=== PATIENT | male | born 1975 | race African-American/Black ===

== ENCOUNTER 2018-01-14 18:13 | Inpatient (IN) | payer OTHER ==
[~2018-01-14] VITALS: Ht 175.3 cm; Wt 77.1 kg
[2018-01-14] MEDS ORDERED: Aspirin Baby 81mg ORAL ONE (18:15)
[2018-01-14 18:17] VITALS: BP 141/93
[2018-01-14] MEDS ORDERED: ASPIRIN81 MG ORAL (18:18)
[2018-01-14] MEDS ORDERED: ATORVASTATIN CA20 MG ORAL (18:18)
[2018-01-14] MEDS ORDERED: METOPROLOL TART25 MG ORAL (18:18)
--- NOTE | 2018-01-14 18:29 | Emergency Room Report ---
History of Present Illness General Chief Complaint: Palpitations Source: Patient Present Illness HPI Patient presents emergency department today complaining of palpitations. Patient has a history of coronary artery disease with multiple stents placed when he was 36 years old to [facility]. Patient works for [employer]. He states that at work he usually drinks a lot of coffee. Today however he felt different. He felt that his heart was pounding really fast and really hard. He felt that he was short of breath. He denies any leg pain leg swelling he did have some mild chest pressure. Therefore he called EMS was brought here for further evaluation. No other complaints are noted. Symptoms noted to be moderate to severe.No other modifying factors. No other associated signs and symptoms. No other complaints were noted. Allergies: Coded Allergies: No Known Allergies (Unverified , 01/14/18) Patient History Past Medical History: CAD Past Surgical History: PTCA Pertinent Family History: none Social History: Denies: smoking, alcohol use, drug use Reviewed Nursing Documentation: PMH: Agreed; PSxH: Agreed Nursing Documentation-PMH Past Medical History: No History, Except For Hx Cardiac Problems: Yes - cardiac stent placement in 2011 Hx Hypertension: Yes Review of Systems All Other Systems: negative except mentioned in HPI Physical Exam Vital Signs Date Time Temp Pulse Resp B/P (MAP) Pulse Ox O2 Delivery O2 Flow Rate FiO2 01/14/18 18:07 98.2 86 14 150/100 98 Room Air Sp02 EP Interpretation: reviewed, normal General Appearance: normal inspection, well appearing, no apparent distress, alert Head: atraumatic Eyes: bilateral eye normal inspection ENT: normal ENT inspection, hearing grossly normal, normal voice Neck: normal inspection, full range of motion, supple, no bony tend Respiratory: normal inspection, lungs clear, normal breath sounds, no respiratory distress, no retraction, no wheezing Cardiovascular #1: regular rate, rhythm, no edema Gastrointestinal: normal inspection, normal bowel sounds, non tender, soft, no guarding, no hernia Genitourinary: no CVA tenderness Musculoskeletal: normal inspection, back normal, normal range of motion Neurologic: normal inspection, alert, responsive, speech normal Psychiatric: normal inspection, judgement/insight normal, mood/affect normal Skin: normal inspection, normal color, no rash Medical Decision Making Diagnostic Impression: Primary Impression: Palpitations Additional Impression: ACS (acute coronary syndrome) ER Course Patient presented to the emergency department today complaining of chest pain and palpitations. Differential diagnoses include acute coronary syndrome, pulmonary embolism, pneumothorax, chest wall pain, pleurisy, pericarditis, acute anxiety reaction just to name a few. Given the severity of the patient's presentation I felt this is a highly complex patient. This patient required extensive workup. CBC, chemistry, EKG, chest x-ray, cardiac enzymes, liver profile were all obtained. 12-lead EKG performed for nontraumatic chest pain. [facility] documentation: EKG was performed. Please refer to below for interpretation. Patient had CBC and chemistry obtained. Both of which were normal. Patient's cardiac enzymes also normal. Patient had normal chest x-ray. Patient's EKG and rhythm strip are also normal. However given patient's risk factors prior history of acute TN I felt that was reasonable admit the patient for monitoring. Case was discussed with Dr. Arenas. Patient will be admitted to telemetry for further treatment. Labs Test 01/14/18 18:20 White Blood Count 4.6 K/UL (4.8-10.8) Red Blood Count 6.42 M/UL (4.70-6.10) Hemoglobin 15.3 G/DL (14.2-18.0) Hematocrit 47.7 % (42.0-52.0) Mean Corpuscular Volume 74 FL (80-99) Mean Corpuscular Hemoglobin 23.8 PG (27.0-31.0) Mean Corpuscular Hemoglobin Concent 32.0 G/DL (32.0-36.0) Red Cell Distribution Width 12.0 % (11.6-14.8) Platelet Count 282 K/UL (150-450) Mean Platelet Volume 8.1 FL (6.5-10.1) Neutrophils (%) (Auto) 57.3 % (45.0-75.0) Lymphocytes (%) (Auto) 25.4 % (20.0-45.0) Monocytes (%) (Auto) 15.4 % (1.0-10.0) Eosinophils (%) (Auto) 0.4 % (0.0-3.0) Basophils (%) (Auto) 1.5 % (0.0-2.0) Sodium Level 140 MMOL/L (136-145) Potassium Level 3.7 MMOL/L (3.5-5.1) Chloride Level 103 MMOL/L (98-107) Carbon Dioxide Level 28 MMOL/L (21-32) Anion Gap 9 mmol/L (5-15) Blood Urea Nitrogen 16 mg/dL (7-18) Creatinine 1.6 MG/DL (0.55-1.30) Estimat Glomerular Filtration Rate 47.6 mL/min (>60) Glucose Level 118 MG/DL (74-106) Calcium Level 9.3 MG/DL (8.5-10.1) Total Bilirubin 0.3 MG/DL (0.2-1.0) Aspartate Amino Transf (AST/SGOT) 23 U/L (15-37) Alanine Aminotransferase (ALT/SGPT) 39 U/L (12-78) Alkaline Phosphatase 74 U/L (46-116) Total Creatine Kinase 319 U/L (26-308) Creatine Kinase MB 1.1 NG/ML (0.0-3.6) Creatine Kinase MB Relative Index 0.3 Troponin I 0.000 ng/mL (0.000-0.056) Pro-B-Type Natriuretic Peptide 64 pg/mL (0-125) Total Protein 8.2 G/DL (6.4-8.2) Albumin 3.8 G/DL (3.4-5.0) Globulin 4.4 g/dL Albumin/Globulin Ratio 0.9 (1.0-2.7) EKG Diagnostic Results Rate: normal Rhythm: NSR ST Segments: no acute changes Other Impression pvc Rhythm Strip Diag. Results EP Interpretation: yes Rate: 91 Rhythm: NSR, no PVC's, no ectopy Chest X-Ray Diagnostic Results Chest X-Ray Diagnostic Results : Chest X-Ray Ordered: Yes # of Views/Limited/Complete: 1 View Indication: Chest Pain EP Interpretation: Yes Interpretation: no consolidation, no pneumothorax, no acute cardiopulmonary disease Impression: No acute disease Last Vital Signs Date Time Temp Pulse Resp B/P (MAP) Pulse Ox O2 Delivery O2 Flow Rate FiO2 01/14/18 18:07 98.2 86 14 150/100 98 Room Air Status: improved Disposition: ADMITTED INPATIENT Condition: Serious Efren Santiago MD Jan 14, 2018 18:29
[2018-01-14] MEDS ORDERED: ENALAPRIL MALEAT5 MG ORAL (18:32)
[2018-01-14 18:45] LABS: ANION GAP 9 mmol/L (5-15); BLOOD UREA NITROGEN 16 mg/dL (7-18); CALCIUM 9.3 MG/DL (8.5-10.1); CARBON DIOXIDE 28 MMOL/L (21-32); CHLORIDE 103 MMOL/L (98-107); CREATININE 1.6 MG/DL (0.55-1.30); POTASSIUM 3.7 MMOL/L (3.5-5.1); SODIUM 140 MMOL/L (136-145)
[2018-01-14 19:00] LABS: ALANINE AMINOTRANSFERASE 39 U/L (12-78); ALBUMIN 3.8 G/DL (3.4-5.0); ALBUMIN/GLOBULIN RATIO 0.9 (1.0-2.7); ALKALINE PHOSPHATASE 74 U/L (46-116); ASPARTATE AMINO TRANSFERASE 23 U/L (15-37); BILIRUBIN,TOTAL 0.3 MG/DL (0.2-1.0); CKMB 1.1 NG/ML (0.0-3.6); CREATINE KINASE 319 U/L (26-308)
[2018-01-14] MEDS ORDERED: METOPROLOL TART50 M1 ORAL (19:02)
[2018-01-14 19:04] LABS: BASOPHILS % (AUTO) 1.5 % (0.0-2.0); EOSINOPHILS % (AUTO) 0.4 % (0.0-3.0); HEMATOCRIT 47.7 % (42.0-52.0); HEMOGLOBIN 15.3 G/DL (14.2-18.0); LYMPHOCYTES % (AUTO) 25.4 % (20.0-45.0); MEAN CORPUSCULAR VOLUME 74 FL (80-99); MONOCYTES % (AUTO) 15.4 % (1.0-10.0); NEUTROPHILS % (AUTO) 57.3 % (45.0-75.0); PLATELET COUNT 282 K/UL (150-450); RED BLOOD COUNT 6.42 M/UL (4.70-6.10); WHITE BLOOD COUNT 4.6 K/UL (4.8-10.8)
[2018-01-14] MEDS ORDERED: ATORVASTATIN CA40 MG ORAL (19:04)
[2018-01-14 21:19] VITALS: BP 124/84
[2018-01-14 22:20] VITALS: BP 126/86
[2018-01-14] MEDS ORDERED: Pantoprazole Inj IV PRN (23:30)
[2018-01-14] MEDS ORDERED: Nitroglycerin Subl 0.4mg tab SL PRN (23:30)
[2018-01-14] MEDS ORDERED: Atorvastatin 80mg tab ORAL SCH (23:30)
[2018-01-15] VITALS: BP 126/83
[2018-01-15] MEDS: Metoprolol Tartrate 50mg tab ORAL SCH ×2 (00:34→08:39)
[2018-01-15] MEDS: Enalapril 5mg tab ORAL SCH ×2 (00:34→08:38)
[2018-01-15 04:00] VITALS: BP 120/64
[2018-01-15 07:43] LABS: CHOLESTEROL 206 MG/DL (< 200); HDL CHOLESTEROL 41 MG/DL (40-60); TRIGLYCERIDES 136 MG/DL (30-150)
[2018-01-15 08:00] VITALS: BP 106/64
--- NOTE | 2018-01-15 08:39 | History & Physical ---
History and Physical History & Physicial Dictation completed # [id number] Linda Arenas MD Jan 15, 2018 08:39
--- NOTE | 2018-01-15 08:40 | General Progress Note ---
Assessment/Plan Assessment/Plan Dictation completed 1- DM will start sliding scale , will monitor Subjective Allergies: Coded Allergies: No Known Allergies (Unverified , 01/14/18) Objective Last 24 Hour Vital Signs Date Time Temp Pulse Resp B/P (MAP) Pulse Ox O2 Delivery O2 Flow Rate FiO2 01/15/18 08:00 98.0 64 18 106/64 (78) 98 01/15/18 04:00 97.6 64 18 120/64 (82) 97 01/15/18 03:51 72 01/15/18 00:34 60 126/83 01/15/18 00:34 126/83 01/15/18 00:23 Room Air 01/15/18 00:00 97.5 60 18 126/83 (97) 99 01/14/18 23:19 69 01/14/18 22:37 64 01/14/18 22:20 97.9 71 16 126/86 (99) 97 01/14/18 22:15 98.2 74 16 124/84 98 Room Air 01/14/18 21:19 98.2 74 16 124/84 98 Room Air 01/14/18 18:17 98.2 92 18 141/93 99 Room Air 01/14/18 18:07 98.2 86 14 150/100 98 Room Air Intake and Output 01/14/18 01/15/18 18:59 06:59 Intake Total 180 ml Balance 180 ml Intake Oral 60 ml Other 120 ml # Voids 1 Laboratory Tests 01/14/18 18:20: White Blood Count 4.6L, Red Blood Count 6.42H, Hemoglobin 15.3, Hematocrit 47.7 , Mean Corpuscular Volume 74L, Mean Corpuscular Hemoglobin 23.8L, Mean Corpuscular Hemoglobin Concent 32.0, Red Cell Distribution Width 12.0, Platelet Count 282, Mean Platelet Volume 8.1, Neutrophils (%) (Auto) 57.3, Lymphocytes (% ) (Auto) 25.4, Monocytes (%) (Auto) 15.4H, Eosinophils (%) (Auto) 0.4, Basophils (%) (Auto) 1.5, Sodium Level 140, Potassium Level 3.7, Chloride Level 103, Carbon Dioxide Level 28, Anion Gap 9, Blood Urea Nitrogen 16, Creatinine 1.6H, Estimat Glomerular Filtration Rate 47.6, Glucose Level 118H, Calcium Level 9.3, Total Bilirubin 0.3, Aspartate Amino Transf (AST/SGOT) 23, Alanine Aminotransferase (ALT/SGPT) 39, Alkaline Phosphatase 74, Total Creatine Kinase 319H, Creatine Kinase MB 1.1, Creatine Kinase MB Relative Index 0.3, Troponin I 0.000, Pro-B-Type Natriuretic Peptide 64, Total Protein 8.2, Albumin 3.8, Globulin 4.4, Albumin/Globulin Ratio 0.9L 01/15/18 05:58: Troponin I 0.017, Hemoglobin A1c 6.7H, Triglycerides Level 136, Cholesterol Level 206H, LDL Cholesterol 151H, HDL Cholesterol 41, Cholesterol/HDL Ratio 5.0H Height (Feet): 5 Height (Inches): 9.00 Weight (Pounds): 170 Linda Arenas MD Jan 15, 2018 08:40
--- NOTE | 2018-01-15 08:59 | Diagnostic Imaging Report ---
Indication: Cough Technique: One view of the chest Comparison: none Findings: Lungs and pleural spaces are clear. Heart size is normal. Inspiration is suboptimal Impression: No acute process This agrees with the preliminary interpretation provided by the emergency room physician
[2018-01-15] MEDS ORDERED: Aspirin Baby 81mg ORAL SCH (09:00)
--- NOTE | 2018-01-15 10:25 | Cardiology Progress Note ---
Assessment/Plan Assessment/Plan The patient is seen and examined, full consult report is dictated. Objective Last 24 Hour Vital Signs Date Time Temp Pulse Resp B/P (MAP) Pulse Ox O2 Delivery O2 Flow Rate FiO2 01/15/18 09:15 Room Air 01/15/18 08:39 61 121/72 01/15/18 08:38 121/72 01/15/18 08:00 98.0 64 18 106/64 (78) 98 01/15/18 04:00 97.6 64 18 120/64 (82) 97 01/15/18 03:51 72 01/15/18 00:34 60 126/83 01/15/18 00:34 126/83 01/15/18 00:23 Room Air 01/15/18 00:00 97.5 60 18 126/83 (97) 99 01/14/18 23:19 69 01/14/18 22:37 64 01/14/18 22:20 97.9 71 16 126/86 (99) 97 01/14/18 22:15 98.2 74 16 124/84 98 Room Air 01/14/18 21:19 98.2 74 16 124/84 98 Room Air 01/14/18 18:17 98.2 92 18 141/93 99 Room Air 01/14/18 18:07 98.2 86 14 150/100 98 Room Air Intake and Output 01/14/18 01/15/18 18:59 06:59 Intake Total 180 ml Balance 180 ml Intake Oral 60 ml Other 120 ml # Voids 1 Laboratory Tests Test 01/14/18 18:20 01/15/18 05:58 White Blood Count 4.6 K/UL (4.8-10.8) L Red Blood Count 6.42 M/UL (4.70-6.10) H Hemoglobin 15.3 G/DL (14.2-18.0) Hematocrit 47.7 % (42.0-52.0) Mean Corpuscular Volume 74 FL (80-99) L Mean Corpuscular Hemoglobin 23.8 PG (27.0-31.0) L Mean Corpuscular Hemoglobin Concent 32.0 G/DL (32.0-36.0) Red Cell Distribution Width 12.0 % (11.6-14.8) Platelet Count 282 K/UL (150-450) Mean Platelet Volume 8.1 FL (6.5-10.1) Neutrophils (%) (Auto) 57.3 % (45.0-75.0) Lymphocytes (%) (Auto) 25.4 % (20.0-45.0) Monocytes (%) (Auto) 15.4 % (1.0-10.0) H Eosinophils (%) (Auto) 0.4 % (0.0-3.0) Basophils (%) (Auto) 1.5 % (0.0-2.0) Sodium Level 140 MMOL/L (136-145) Potassium Level 3.7 MMOL/L (3.5-5.1) Chloride Level 103 MMOL/L (98-107) Carbon Dioxide Level 28 MMOL/L (21-32) Anion Gap 9 mmol/L (5-15) Blood Urea Nitrogen 16 mg/dL (7-18) Creatinine 1.6 MG/DL (0.55-1.30) H Estimat Glomerular Filtration Rate 47.6 mL/min (>60) Glucose Level 118 MG/DL (74-106) H Calcium Level 9.3 MG/DL (8.5-10.1) Total Bilirubin 0.3 MG/DL (0.2-1.0) Aspartate Amino Transf (AST/SGOT) 23 U/L (15-37) Alanine Aminotransferase (ALT/SGPT) 39 U/L (12-78) Alkaline Phosphatase 74 U/L (46-116) Total Creatine Kinase 319 U/L (26-308) H Creatine Kinase MB 1.1 NG/ML (0.0-3.6) Creatine Kinase MB Relative Index 0.3 Troponin I 0.000 ng/mL (0.000-0.056) 0.017 ng/mL (0.000-0.056) Pro-B-Type Natriuretic Peptide 64 pg/mL (0-125) Total Protein 8.2 G/DL (6.4-8.2) Albumin 3.8 G/DL (3.4-5.0) Globulin 4.4 g/dL Albumin/Globulin Ratio 0.9 (1.0-2.7) L Hemoglobin A1c 6.7 % (4.3-6.0) H Triglycerides Level 136 MG/DL (30-150) Cholesterol Level 206 MG/DL (< 200) H LDL Cholesterol 151 mg/dL (<100) H HDL Cholesterol 41 MG/DL (40-60) Cholesterol/HDL Ratio 5.0 (3.3-4.4) H Harshil Dotson MD Jan 15, 2018 10:25
[2018-01-15] MEDS ORDERED: NovoLOG Insulin Flexpen SUBQ SCH (11:30)
[2018-01-15 12:00] VITALS: BP 127/88
[2018-01-15] MEDS ORDERED: LIPITOR80 MG ORAL (14:21)
[2018-01-15] MEDS ORDERED: METOPROLOL TAR100 M1 ORAL (14:22)
--- NOTE | 2018-01-15 17:15 | History and Physical Report ---
DATE OF ADMISSION: 01/14/2018 SOURCE OF INFORMATION: Patient and EMR. HISTORY OF PRESENT ILLNESS: The patient is a 42-year-old male with history of cardiac disease and stent placement back in 2001. The patient reported that chest pain is getting worse. The patient stated that the palpitations started 1 or 2 days prior to admission. He reported that palpitations felt in the mid chest area. He denies shortness of breath. He denies having any fever or chills. He denies smoking or using any drugs. No nausea. No diarrhea. PAST MEDICAL HISTORY: Coronary artery disease, hypertension, hyperlipidemia. PAST SURGICAL HISTORY: PTCA and stent placement in 2001. MEDICATIONS: Current hospital medications including but not limited to aspirin, atorvastatin, enalapril, metoprolol. ALLERGIES: NKDA. FAMILY HISTORY: Reviewed and noncontributory. SOCIAL HISTORY: The patient denies history of illicit drug abuse, smoking, or alcohol abuse. The patient is single. PHYSICAL EXAMINATION: VITAL SIGNS: Blood pressure 150/100, temperature 98.2, pulse oximetry 98% on room air, pulse rate at 71. HEAD AND NECK: Atraumatic and normocephalic. CHEST: Clear to auscultation. No wheezing. No crackles. HEART: S1 and S2. Regular rate and rhythm. No S3. No S4. ABDOMEN: Soft. No organomegaly. Bowel sounds are normal. MUSCULOSKELETAL: No gross lateralized motor deficit. No edema. NEUROLOGY: Awake, alert, and oriented x3. LABORATORY DATA: Dated January 14, 2018 shows WBC 4.6, hemoglobin of 15.3, platelet count of 282. Sodium 140, potassium 3.7, BUN 16, creatinine 1.6. ALT and AST are within normal limits. Total cholesterol of 206. ASSESSMENT AND PLAN: 1. Acute coronary syndrome. 2. Coronary artery disease-status post PTCA in 2001. 3. Hyperlipidemia. 4. Hypertension. 5. Leukopenia. 6. Abnormal blood sugar. 7. GI and DVT prophylaxis. 8. Renal failure, age indeterminate. PLAN OF CARE: 1. We will check the A1c and lipid panel. 2. Check HIV status. 3. Cardiology service has been consulted. We will obtain a 2D echo. Time of this dictation does not reflect the actual time of encounter. Michaelammalukasz Arenas M.D. DR: Tea JOB#: [id number] CC:
[2018-01-15] MEDS ORDERED: Metoprolol Tartrate 50mg tab ORAL SCH (18:00)
--- NOTE | 2018-01-15 20:30 | Consultation ---
DATE OF CONSULTATION: 01/15/2018 CARDIOLOGY CONSULTATION CONSULTING PHYSICIAN: Harshil Dotson M.D. REFERRING PHYSICIAN: Linda Arenas M.D. REASON FOR CONSULTATION: Management of palpitations. HISTORY OF PRESENT ILLNESS: The patient is a very pleasant 42-year-old gentleman with a history of one-vessel coronary artery disease, status post PCI x2 of the left coronary artery done at [facility], who presents to the hospital with complaints of palpitation that occurred after drinking three shots of Americano coffee. 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 He states that the palpitation is most likely a thump over the chest wall. He denies any heart flutter as a continuous abnormal rhythm. He denies any chest pain with exertion or shortness of breath with exertion. He states that he does not get any dizziness or lightheadedness, however, had shortness of breath with this event. PAST MEDICAL HISTORY: Including one-vessel coronary artery disease, status post PCI x2 at [facility]. Also history of hypertension. ALLERGIES: No known drug allergies. PAST SURGICAL HISTORY: PCI. FAMILY HISTORY: No premature coronary artery disease or arrhythmogenic in first-degree relatives. SOCIAL HISTORY: Denies any tobacco, alcohol, or illicit drug use. REVIEW OF SYSTEMS: HEENT: Denies any headache, diplopia, or blurred vision. CONSTITUTIONAL: Denies any fever, chills, night sweats, or weight loss. CARDIOVASCULAR: Shortness of breath with the event with palpitation, but denies any PND, orthopnea, leg swelling, or chest pain. PULMONARY: Denies any cough, hemoptysis, or wheezing. GASTROINTESTINAL: Denies any nausea, vomiting, diarrhea, constipation, abdominal pain, or GI bleed. GENITOURINARY: Denies any hematuria, dysuria, or incontinence. NEUROLOGIC: Denies any motor dysfunction, sensory deficit, or altered speech. MEDICATIONS: List of medications at home include aspirin 81 mg p.o. daily, enalapril 5 mg p.o. daily, atorvastatin 40 mg p.o. nightly, and metoprolol 50 mg p.o. twice daily. PHYSICAL EXAMINATION: VITAL SIGNS: Blood pressure at time of arrival to the hospital was 150/100, respirations 14, pulse 86, and temperature 98.2 degrees Fahrenheit. O2 saturation 98% on room air. GENERAL: The patient is a very pleasant 42-year-old black [place], in no apparent respiratory distress. Alert and oriented x4. HEENT: Atraumatic and normocephalic. Anicteric. Pupils are equal, round, and reactive to light and accommodation. Extraocular muscles intact. NECK: JVP less than 5 cm. No carotid bruit. Carotid upstrokes 2+ bilaterally. CARDIOVASCULAR: Normal S1 and S2. Regular rate, irregular rhythm due to ectopic beats. No murmurs, gallops, or rubs. PMI is at fourth intercostal space in the midclavicular line. LUNGS: Clear to auscultation bilaterally. ABDOMEN: Soft, nontender, and nondistended. No hepatosplenomegaly. Positive bowel sounds. EXTREMITIES: No evidence of edema, clubbing, or cyanosis. LABORATORY FINDINGS: Sodium is 140, potassium 3.7, chloride 103, bicarbonate 28, BUN 16, and creatinine 1.6. Glucose is 118. Calcium is 9.3. Hemoglobin A1c is 6.7. Troponin I is 0 and 0.017, both are within normal limits. ProBNP was 64. Triglycerides is 136, cholesterol 206, LDL 151, and HDL 41. A 12-lead electrocardiogram, sinus rhythm, heart rate of 91 with no acute ischemic features and single ventricular premature complexes. Chest x-ray showed no acute cardiopulmonary disease. ASSESSMENT AND PLAN: The patient is a very unfortunate 42-year-old gentleman seen in Cardiology consultation. 1. Most likely ventricular premature complexes symptomatic. We will continue to monitor the burden of premature ventricular contractions in this hospitalization. They are appearing in single, have not noticed couplets either. Treatment of this condition is to rule out CAD. The patient claims that he had an ischemic workup back in March and April of this year including a stress echocardiography, which was nonischemic. I would like to increase metoprolol to 100 mg p.o. twice daily. We will check magnesium level. In the meantime, a 2-D echocardiography has been ordered and will be reviewed to cardiac structure. 2. One-vessel coronary artery disease, status post PCI x2 at [facility], there is no acute ischemic features on the 12-lead electrocardiogram. Acute myocardial infarction is ruled out by two negative troponin I levels. Again, recent ischemic workup including stress echocardiogram was nonischemic. 3. History of hypertension. The patient presents with accelerated hypertension to this facility. We would like to up-titrate the metoprolol as well as enalapril. 4. Atorvastatin will be increased to 80 mg nightly. He may need to have PCSK9 inhibitor added if the target LDL of less than 70 is not reached. 5. Elevated hemoglobin A1c is 6.7, may suggest new-onset diabetes mellitus. We will have Dr. Arenas to address this issue. I would like to thank, Dr. Arenas, for allowing me to participate in the care of this patient. Harshil Dotson M.D. DR: HEKIE JOB#: [id number] CC:
[2018-01-15] MEDS ORDERED: Atorvastatin 80mg tab ORAL SCH (21:00)
--- NOTE | 2018-01-16 09:25 | Discharge Summary ---
Discharge Summary Discharge Summary _ DATE OF ADMISSION: 01/14/2018 DATE OF DISCHARGE: 01/15/2018 CONSULTANTS: Dr. Harshil Dotson BRIEF HOSPITAL COURSE: Patient is a 42-year-old male, brought in by EMS, with history of cardiac disease and stent placement back in 2001. The patient reported chest pain that is getting worse. He complained of palpitations that started 1-2 days prior to admission. He reported palpitations were felt in the mid chest area. He denied any shortness of breath. Denied fever or chills. Denied smoking or using any drugs. There was no nausea no diarrhea. On evaluation at ED, blood pressure was elevated to 150/100. Heart rate of 86. 12-lead EKG performed showed normal sinus rhythm with no acute changes. Chest x-ray showed no acute disease. Blood work did not show any leukocytoses, hemoglobin and hematocrit were stable. Creatinine was elevated to 1.6. Troponin was negative. Due to his risk factors he was admitted for further evaluation. He underwent cardiac evaluation. He was seen by special education aide. Patient is status post PCI 2 on the left coronary artery done at [facility]. He complained palpitations occurred after drinking 3 shots of Americano coffee. He denied any chest pain on exertion or shortness of breath with exertion. On review of his 12-lead EKG, EKG did not show any acute ischemic features and had a single ventricular premature complexes. PVCs appeared single and have not noticed any couplet. Metoprolol was increased to 100 mg twice a day and continued on Enalapril 5 mg daily. Lipid panel was checked. Thyroid was normal. He was given aspirin and Lipitor was increased to 80 mg daily. He had recent stress echocardiogram done at [facility] that was nonischemic. Serial troponins were negative. He was then cleared for discharge. A1c 6.7. Recommend to follow up with PMD. FINAL DIAGNOSES: Chest pain and palpitations most likely due to premature ventricular complexes Coronary artery disease status post PTCA Hyperlipidemia Hypertension Leukopenia abnormal blood sugar Renal failure age indeterminant DISPOSITION: Patient was discharged home. DISCHARGE MEDICATIONS: Refer to Discharge Medication List. DISCHARGE INSTRUCTIONS: Follow up in a week. I have been assigned to dictate discharge summary on this account, and I was not involved in the patient's management. Negin Cowan NP Jan 16, 2018 09:25
--- NOTE | 2018-01-19 11:07 | Cardiology Report ---
APPROVED REPORT EXAM: Two-dimensional and M-mode echocardiogram with Doppler and color Doppler. INDICATION Chest Pain M-Mode DIMENSIONS IVSd0.8 (0.7-1.1cm)Left Atrium (MM)3.0 (1.6-4.0cm) LVDd4.3 (3.5-5.6cm)Aortic Root3.2 (2.0-3.7cm) PWd1.1 (0.7-1.1cm)Aortic Cusp Exc.1.9 (1.5-2.0cm) LVDs3.0 (2.5-4.0cm) PWs1.5 cm Normal left ventricular chamber size, systolic function and wall motion. Left ventricular ejection fraction estimated to be 60 %. Mild left ventricular hypertrophy by 2-D. No evidence of pericardial effusion. All other cardiac chamber sizes are within normal limits. Focal aortic valve sclerosis with adequate cusp excursion. Thickened mitral valve leaflets with normal excursion. Mitral annulus and aortic root calcification. Pulmonic valve not well visualized. Normal tricuspid valve structure. IVC at normal size with physiologic collapse. A color flow and spectral Doppler study was performed and revealed: Trace mitral regurgitation. Mitral inflow indicates normal left ventricular diastolic function. Trace tricuspid regurgitation. Tricuspid systolic velocities suggests peak right ventricular systolic pressure of 18 mmHg. Pulmonic regurgitation present.
== END 2018-01-15 16:00 | disposition home or self-care (01) | DRG 310 ==
LOC: EDBD 18:13 → EMR 18:30 → EDBEDREQ 19:52 → 2E 19:57 → EDBEDREQ 21:03 → 2E 22:54
DX: I49.3 Ventricular premature depolarization (principal); R07.89 Other chest pain; I25.10 Atherosclerotic heart disease of native coronary artery without angina pectoris; Z95.5 Presence of coronary angioplasty implant and graft; E78.5 Hyperlipidemia, unspecified; I10 Essential (primary) hypertension; N19 Unspecified kidney failure; Z79.82 Long term (current) use of aspirin; R73.09 Other abnormal glucose
CPT/HCPCS: 36415; 71045; 80053; 80061; 82550; 82553; 82962; 83036; 83880; 84443; 84484; 85025; 93005; 93306; 99285; J1815